=== PATIENT | female | born 1960 | race Caucasian/White ===

== ENCOUNTER 2022-10-22 14:21 | Emergency (ER) | payer OTHER, SELFPAY ==
[2022-10-22 15:02] VITALS: BP 159/74; PULSE 63; RESP 22; TEMP 36.4; O2SAT 97; BMI 37.2
--- NOTE | 2022-10-22 15:47 | ED_ITS ---
HPI - General Adult General Time Seen by Provider: 15:47 Date Seen: 10/22/22 Chief complaint: Cough Stated complaint: Pnuemonia Time Seen by Provider: 10/22/22 15:28 Source: patient Mode of arrival: ambulatory Limitations: no limitations History of Present Illness HPI narrative: Patient is 62-year-old female has history of asthma, she has been treated with Augmentin and then subsequent currently is on doxycycline and steroids. She sees an appraiser irrigation tax takes a couple of types of inhalers. Sees a local doctor. She actually reports she is feeling little bit better, little bit more energy, little less congestion but has a lot of mucus. She just started the steroids yesterday. No leg swelling edema, no chest pain. Related Data Home Medications Medication Instructions Recorded Confirmed buspirone 5 mg tablet 5 mg PO TID 10/22/22 10/22/22 doxycycline hyclate 100 mg tablet 100 mg PO BID 10/22/22 10/22/22 estradiol 0.5 mg tablet (Estrace) 0.25 mg PO DAILY 10/22/22 10/22/22 hydrochlorothiazide 25 mg tablet 25 mg PO DAILY 10/22/22 10/22/22 levalbuterol tartrate 45 1 inh inhalation Q4-6H PRN 10/22/22 10/22/22 mcg/actuation aerosol inhaler losartan 50 mg tablet (Cozaar) 50 mg PO DAILY 10/22/22 10/22/22 medroxyprogesterone 2.5 mg tablet 2.5 mg PO DAILY 10/22/22 10/22/22 (Provera) metoprolol tartrate 25 mg tablet 50 mg PO BID 10/22/22 10/22/22 omega 4-xtx-aif-fish oil 1,000 mg 1 cap PO DAILY 10/22/22 10/22/22 (120 mg-180 mg) capsule (Fish Oil) prednisone 20 mg tablet 40 mg PO DAILY 10/22/22 10/22/22 zafirlukast 20 mg tablet 20 mg PO DAILY 10/22/22 10/22/22 Allergies Allergy/AdvReac Type Severity Reaction Status Date / Time Sulfa (Sulfonamide Allergy Verified 10/22/22 15:10 Antibiotics) Review of Systems Status of ROS: Reports: 6 or more systems reviewed and unremarkable except as noted in History and below PFSH PFSH Social History Smoking Status: Never smoker Do you use any of these nicotine containing products: None Second hand tobacco smoke exposure: No How often do you have a drink containing alcohol: monthly or less AUDIT-C Alcohol total score: 1 Non-prescribed substance use: denies use Exam Narrative: Exam Narrative: Objective: Vital signs unremarkable O2 sat is 97% on room air HEENT is unremarkable neck is supple Chest is clear no rales or wheezing Heart rhythm regular without murmur Extremities are no edema Const: Vital Signs, click to edit/add: Vital Signs - 24 hr 10/22/22 15:02 Temperature 97.6 F Pulse Rate [Pulse Oximeter] 63 Respiratory Rate 22 Blood Pressure [Ri t Upper Arm] 159/74 H Pulse Oximetry 97 Oxygen Delivery Me thod Room Air Course Vital Signs Vital signs: Initial Vital Signs Temperature 97.6 F 10/22/22 15:02 Temperature Source Temporal Artery Scan 10/22/22 15:02 Pulse Rate 63 10/22/22 15:02 Pulse Rhythm 10/22/22 15:02 Respiratory Rate 22 10/22/22 15:02 Blood Pressure 159/74 H 10/22/22 15:02 Blood Pressure Mean 102 10/22/22 15:02 Blood Pressure Position Sitting 10/22/22 15:02 Pulse Oximetry 97 10/22/22 15:02 Oxygen Delivery Method 10/22/22 15:02 Vital Signs Temperature 97.6 F 10/22/22 15:02 Pulse Rate 63 10/22/22 15:02 Respiratory Rate 22 10/22/22 15:02 Blood Pressure 159/74 H 10/22/22 15:02 Pulse Oximetry 97 10/22/22 15:02 Oxygen Delivery Method 10/22/22 15:02 Temperature 97.6 F 10/22/22 15:02 Pulse Rate 63 10/22/22 15:02 Respiratory Rate 22 10/22/22 15:02 Blood Pressure 159/74 H 10/22/22 15:02 Pulse Oximetry 97 10/22/22 15:02 Oxygen Delivery Method 10/22/22 15:02 Medical Decision Making MDM Narrative Medical decision making narrative: Patient is a 62 year white female with history of asthma, she started on steroids and doxycycline. She is feeling actually little bit better. I think it be reasonable to check an RSV/COVID/influenza test. She has taken COVID tests are negative at home. She does not smoke. She will follow up with regular doctor next few days as needed. Otherwise I return to ED if she worsens. And this is viral induced asthma exacerbation. Lab Data Labs: Lab Results 10/22/22 Range/Units 15:44 SARS-CoV-2 (PCR) Negative SARS-CoV-2 (Negative) Influenza Type A (PCR) Negative PCR FLU A (Negative) Influenza Type B (PCR) Negative PCR FLU B (Negative) RSV (PCR) POSITIVE PCR RSV A (Negative) Discharge Plan Discharge Clinical Impression: Acute upper respiratory infection, Asthma Patient Disposition: Home w/ Parent or Adult Condition: Stable Additional Instructions: Continue antibiotic doxycycline and steroids, continue inhalers. Follow up with regular doctor next couple of days, return here sooner problems or concerns Activity Level: Light activity Discharge Diet: Regular Prescriptions: No Action doxycycline hyclate 100 mg tablet 100 mg PO BID Label Comments: TAKE ONE TABLET BY MOUTH TWICE A DAY FOR 5 DAYS estradiol [Estrace] 0.5 mg tablet 0.25 mg PO DAILY buspirone 5 mg tablet 5 mg PO TID omega 6-xcy-zba-fish oil [Fish Oil] 1,000 mg (120 mg-180 mg) capsule 1 cap PO DAILY hydrochlorothiazide 25 mg tablet 25 mg PO DAILY levalbuterol tartrate 45 mcg/actuation HFA aerosol inhaler 1 inh inhalation Q4-6H PRN medroxyprogesterone [Provera] 2.5 mg tablet 2.5 mg PO DAILY metoprolol tartrate 25 mg tablet 50 mg PO BID losartan [Cozaar] 50 mg tablet 50 mg PO DAILY prednisone 20 mg tablet 40 mg PO DAILY Rx Instructions: daily for 5 days zafirlukast 20 mg tablet 20 mg PO DAILY Rx Instructions: must be taken on empty stomach, at least 1 hr before or 2 hrs after a meal/food Follow Up/Referrals: Jessenia Horvath MD [Primary Care Provider] - Stand Alone Forms: [employer] Info Instructions
[2022-10-22 16:39] LABS: PCR FLU A Negative PCR FLU A (Negative); PCR FLU B Negative PCR FLU B (Negative); PCR RSV POSITIVE PCR RSV (Negative); SARS PCR* Negative SARS-CoV-2 (Negative)
== END 2022-10-22 16:04 | disposition home or self-care (01) ==
LOC: ED 15:51
PROVIDERS: Emergency Provider Family Medicine; PCP Family Medicine
DX: J06.9 Acute upper respiratory infection, unspecified (principal); J45.909 Unspecified asthma, uncomplicated
CPT/HCPCS: 87502; 87634; 87635; 99283

== ENCOUNTER 2023-04-14 13:28 | Emergency (ER) | payer OTHER, SELFPAY ==
[2023-04-14 13:36] VITALS: BP 148/85; PULSE 52; RESP 16; TEMP 36.4; O2SAT 97; BMI 39.0
--- NOTE | 2023-04-14 13:51 | ED.ARRPALP ---
HPI - Arrhythmia/Palpitations General Time Seen by Provider: 13:52 Date Seen: 04/14/23 Chief Complaint: Arrhythmia/Palpitations Stated Complaint: Bradycardia Time Seen by Provider: 04/14/23 13:29 Source: patient, RN notes reviewed and old records reviewed Mode of arrival: ambulatory Limitations: no limitations History of Present Illness HPI narrative: Patient is a 63-year-old female coming in with complaint of low heart rate. She has been feeling a little lightheaded/dizzy, short of breath at times. She noted on her watch today that her heart rate was in the 40s to 60s. Sometimes when she sleeps she knows it will go down but it is usually up during the day. She was in meetings yesterday just was not feeling quite right in her heart rate was even low during the meetings. She occasionally will feel just a little chest pressure like somebody is pressing on her chest. She is on metoprolol, does not know the dose but no she takes it twice a day. We have listed in the records from October that it was 50 mg of metoprolol twice a day. We are going to have nursing staff see if they can attempt to contact her pharmacy to make sure we know what dose she is on. She is on no other antiarrhythmics. She takes hydrochlorothiazide and losartan for her blood pressure. She states she is on metoprolol for a fast heart rate, this is help suppress it. Prior records stated SVT but unclear exactly what her underlying rhythm is at this point. No syncope. Has not been sick otherwise, no concomitant illness. Arrhythmia history: SVT (Possible underlying history of this) Related Data Home Medications Medication Instructions Recorded Confirmed buspirone 5 mg tablet 5 mg PO TID 10/22/22 10/22/22 estradiol 0.5 mg tablet (Estrace) 0.25 mg PO DAILY 10/22/22 10/22/22 hydrochlorothiazide 25 mg tablet 25 mg PO DAILY 10/22/22 10/22/22 levalbuterol tartrate 45 1 inh inhalation Q4-6H PRN 10/22/22 10/22/22 mcg/actuation aerosol inhaler losartan 50 mg tablet (Cozaar) 50 mg PO DAILY 10/22/22 10/22/22 medroxyprogesterone 2.5 mg tablet 2.5 mg PO DAILY 10/22/22 10/22/22 (Provera) omega 1-isi-rxw-fish oil 1,000 mg 1 cap PO DAILY 10/22/22 10/22/22 (120 mg-180 mg) capsule (Fish Oil) prednisone 20 mg tablet 40 mg PO DAILY 10/22/22 10/22/22 zafirlukast 20 mg tablet 20 mg PO DAILY 10/22/22 10/22/22 metoprolol tartrate 50 mg tablet 50 mg PO BID 04/14/23 04/14/23 Allergies Allergy/AdvReac Type Severity Reaction Status Date / Time Sulfa (Sulfonamide Allergy Verified 10/22/22 15:10 Antibiotics) Review of Systems Status of ROS: Reports: 6 or more systems reviewed and unremarkable except as noted in History and below PFSH PFS Social History Smoking Status: Never smoker Do you use any of these nicotine containing products: None Second hand tobacco smoke exposure: No How often do you have a drink containing alcohol: monthly or less AUDIT-C Alcohol total score: 1 Non-prescribed substance use: denies use Exam Const: Vital Signs, click to edit/add: Vital Signs - 24 hr 04/14/23 13:36 04/14/23 13:55 04/14/23 14:00 Temperature 97.6 F Pulse Rate 54 L 53 L Pulse Rate [Right Pulse Oximeter] 52 L Respiratory Rate 16 Blood Pressure [Ri ght Upper Arm] 148/85 H Pulse Oximetry 97 97 96 Oxygen Delivery Me thod Room Air Documenting provider has reviewed patient's vital signs: yes Common normals: no apparent distress, average body habitus, oriented x3, no limitations, healthy appearing, alert and well nourished General appearance: cooperative, comfortable, well kempt and well developed HENMT: Common normals: normocephalic, head/scalp atraumatic and hearing grossly normal bilaterally Head and scalp: normocephalic and atraumatic Face and sinus: normal facial exam Eye: Common normals: PERRL, EOMs intact bilaterally, conjunctivae normal and no scleral icterus Conjunctiva: conjunctiva(e) normal Pupil: PERRL Neck & C-Spine: Common normals: no JVD Resp: Common normals: normal respiratory effort, no retractions, no use of accessory muscles and clear to auscultation bilaterally Effort & inspection: able to speak in complete sentences Auscultation: clear to auscultation bilaterally Cardio: Common normals: no JVD, regular rate, regular rhythm, S1 normal heart sound, S2 normal heart sound, no gallops and no clicks Rate: regular rate Rhythm: regular rhythm Heart sounds: S1 normal and S2 normal GI: Common normals: Normal to inspection, nondistended, normoactive bowel sounds present, soft to palpation, non-tender and no hepatosplenomegaly Palpation: soft and no hepatosplenomegaly Extremity: Common normals: no pedal edema Neuro: Common normals: oriented x3 Sensorium/orientation: alert Psych: Appearance: well kempt Course Course Hospital Course: Patient will be monitored on pulse oximetry and cardiac monitoring. She is bradycardic in the 50s at rest, not hypotensive. Will get portable chest x-ray and baseline labs. We will watch her here to make sure that she is not becoming too low. She is most definitely going to need an adjustment in her metoprolol. Will have nursing staff confirm her dose so that we can make appropriate adjustments. Reevaluation(s) Time of Reevaluation #1: 15:12 Reevaluation #1: Patient has not had any significant bradycardia while here. Currently is just below 60s in the upper 50s [place] talking to her. Reviewed her potassium is mildly low at 3.3. She states it frequently is. Given she has got some bradycardia, did recommend that we have her take some oral effervescent potassium, have ordered 25 mEq. She agrees to do so. She states that she believes she had SVT and maybe some minor ventricular tachycardia on her last ZIO patch. She understands that she may need to follow up with Cardiology. Hopefully with decreasing her metoprolol she will not have increased tachyarrhythmias but she does understand if these are sustained or significantly symptomatic that she will need to return. Vital Signs Vital signs: Initial Vital Signs Temperature 97.6 F 04/14/23 13:36 Temperature Source Temporal Artery Scan 04/14/23 13:36 Pulse Rate 52 L 04/14/23 13:36 Pulse Rhythm Regular 04/14/23 13:36 Respiratory Rate 16 04/14/23 13:36 Blood Pressure 148/85 H 04/14/23 13:36 Blood Pressure Mean 106 H 04/14/23 13:36 Blood Pressure Position Sitting 04/14/23 13:36 Pulse Oximetry 97 04/14/23 13:36 Oxygen Delivery Method Room Air 04/14/23 13:36 Vital Signs Temperature 97.6 F 04/14/23 13:36 Pulse Rate 52 L 04/14/23 13:36 Respiratory Rate 16 04/14/23 13:36 Blood Pressure 148/85 H 04/14/23 13:36 Pulse Oximetry 97 04/14/23 13:36 Oxygen Delivery Method Room Air 04/14/23 13:36 Temperature 97.6 F 04/14/23 13:36 Pulse Rate 53 L 04/14/23 14:00 Respiratory Rate 16 04/14/23 13:36 Blood Pressure 148/85 H 04/14/23 13:36 Pulse Oximetry 96 04/14/23 14:00 Oxygen Delivery Method Room Air 04/14/23 13:36 MDM - Arrhythmia/Palpitations Lab Data Attestation: I reviewed the patient's lab results. Labs: Lab Results 04/14/23 04/14/23 Range/Units 14:00 14:10 WBC 11.21 H (4.50-11.00) K/uL RBC 5.16 (4.00-5.20) m/uL Hgb 15.8 (12.0-16.0) gm/dL Hct 46.4 (33.0-51.0) % MCV 90 (80-100) fL MCH 31 (26-34) pg MCHC 34 (32-36) gm/dL RDW Coeff of Oni 13.0 (11.5-15.5) % Plt Count 381 (140-440) K/uL Neut % (Auto) 55.9 (42.0-72.0) % Lymph % (Auto) 33.9 (20-44) % [place] % (Auto) 9.4 (0.0-11.0) % Eos % (Auto) 0.0 (0.0-7.0) % Baso % (Auto) 0.3 (0.0-3.0) % Neut # (Auto) 6.30 (1.7-7.0) K/uL Lymph # (Auto) 3.80 H (0.90-2.90) K/uL [place] # (Auto) 1.10 H (0.00-0.90) K/UL Eos # (Auto) 0.00 (0.00-0.50) K/uL Baso # (Auto) 0.00 (0.00-0.30) K/uL Sodium 139 (135-149) mmol/L Potassium 3.3 L (3.6-5.1) mmol/L Chloride 101 (96-114) mmol/L Carbon Dioxide 28 (20-32) mmol/L BUN 15 (7-30) mg/dL Creatinine 0.9 (0.5-1.5) mg/dL Estimated Creat Clear 48.87 Estimated GFR 73 ml/min Glucose 96 (60-115) mg/dL Calcium 9.5 (8.4-10.6) mg/dL Magnesium 2.2 (1.5-2.6) mg/dL Total Bilirubin 1.1 (0.1-1.5) mg/dL AST 29 (12-35) U/L ALT 40 H (4-35) U/L Alkaline Phosphatase 54 (40-150) U/L NT-Pro-B Natriuret Pep 197 pg/mL Total Protein 7.6 (6.0-8.3) g/dL Albumin 4.4 (3.3-5.0) g/dL POC Troponin I 0.00 L (0.01-0.04) ng/ml Imaging Data Chest x-ray: Attestation: I have reviewed the pertinent imaging results. Radiologist's impression: Patient: BELÉN QUEVEDO Facility:?[facility] Patient ID:?[id number] Site Patient ID:?[id number]. Site :?[id number] Study:?XRay Chest pcxr-04/14/2023 2:41:09 PM Ordering Physician:?Juan Luu Final Report: INDICATION: Shortness of breath TECHNIQUE: Single view chest. FINDINGS: Low lung volumes. Mildly enlarged cardiac silhouette. Prominence interstitial markings could be related to mild pulmonary edema. No effusion or pneumothorax. Dictated by Sania Mccray MD @ 04/14/2023 3:19:07 PM (Electronic Signature) ECG Data Attestation: I personally reviewed and interpreted this ECG as follows: (Sinus bradycardia, 54 beats per minute. Possible voltage criteria for LVH. No acute ischemic change. QT corrected 385 milliseconds.) ECG interpretation date: 04/14/23 ECG interpretation time: 14:01 Prior ECG tracings: not available for review Core Measures AMI core measures followed: No Critical Care Time Critical Care Time Critical Care Time: No Discharge Plan Discharge Clinical Impression: Bradycardia, drug induced, Hypokalemia Patient Disposition: Home, Self-Care Condition: Stable Instructions: Potassium Content of Foods List (ED), Bradycardia (ED) Additional Instructions: Need to decrease your dosage to 25 mg twice a day of metoprolol. Follow-up with primary care provider within the next 1-2 weeks for recheck, sooner if problems or concerns. If you note continuing ongoing low heart rates that are worsening, consistently dropping into the 30s or 40s, do recommend re-evaluation in the ER. If with the decreased metoprolol, you are noticing increasing arrhythmias with your higher heart rates, please contact your steel barrel reamer. If you have any sustained elevated high heart rates, have any chest pain or shortness of breath with high heart rate, do recommend re-evaluation in the ER as well. Have your primary care provider recheck your potassium when you are in. You may need to go back to your steel barrel reamer, discuss this with her primary care provider. Try to increase dietary potassium through foods, handout on potassium content of foods provided. You will be contacted if there is any concern with the thyroid blood test; otherwise, assume that it is normal if you do not hear from us. Activity Level: Activity as Tolerated Discharge Diet: Heart Healthy (2 gm sodium, low fat) Prescriptions: No Action metoprolol tartrate 50 mg tablet 50 mg PO BID estradiol [Estrace] 0.5 mg tablet 0.25 mg PO DAILY buspirone 5 mg tablet 5 mg PO TID omega 0-wyr-zzs-fish oil [Fish Oil] 1,000 mg (120 mg-180 mg) capsule 1 cap PO DAILY hydrochlorothiazide 25 mg tablet 25 mg PO DAILY levalbuterol tartrate 45 mcg/actuation HFA aerosol inhaler 1 inh inhalation Q4-6H PRN medroxyprogesterone [Provera] 2.5 mg tablet 2.5 mg PO DAILY losartan [Cozaar] 50 mg tablet 50 mg PO DAILY prednisone 20 mg tablet 40 mg PO DAILY Rx Instructions: daily for 5 days zafirlukast 20 mg tablet 20 mg PO DAILY Rx Instructions: must be taken on empty stomach, at least 1 hr before or 2 hrs after a meal/food Follow Up/Referrals: Jessenia Horvath MD [Primary Care Provider] - Stand Alone Forms: [employer] Info Instructions
[2023-04-14 13:55] VITALS: PULSE 54; O2SAT 97
[2023-04-14 14:00] VITALS: PULSE 53; O2SAT 96
--- NOTE | 2023-04-14 14:00 | CRLHL7_ITS ---
For Patients: As a result of the Century Cures Act, medical imaging exams and procedure reports are released immediately into your electronic medical record. You may view this report before your referring provider. If you have questions, please contact your health care provider. INDICATION: Shortness of breath TECHNIQUE: Single view chest. FINDINGS: Low lung volumes. Mildly enlarged cardiac silhouette. Prominence interstitial markings could be related to mild pulmonary edema. No effusion or pneumothorax. Dictated by Sania Mccray MD @ 04/14/2023 3:19:07 PM (Electronically Signed)
[2023-04-14 14:41] LABS: Albumin* 4.4 g/dL (3.3-5.0); Chloride* 101 mmol/L (96-114); Potassium* 3.3 mmol/L (3.6-5.1); Sodium* 139 mmol/L (135-149)
[2023-04-14 14:43] LABS: Creatinine* 0.9 mg/dL (0.5-1.5); Est. Creatinine Clearance* 48.87; Estimated Glomerular Filt Rate 73 ml/min
[2023-04-14 14:44] LABS: Alanine Aminotransferase* 40 U/L (4-35); Alkaline Phosphatase* 54 U/L (40-150); Aspartate Amino Transferase* 29 U/L (12-35); Bilirubin Total* 1.1 mg/dL (0.1-1.5); Blood Urea Nitrogen* 15 mg/dL (7-30); Calcium* 9.5 mg/dL (8.4-10.6); Carbon Dioxide* 28 mmol/L (20-32); Glucose* 96 mg/dL (60-115); Total Protein* 7.6 g/dL (6.0-8.3)
[2023-04-14 14:45] LABS: Magnesium* 2.2 mg/dL (1.5-2.6)
[2023-04-14 14:48] LABS: Basophils Percent Auto 0.3 % (0.0-3.0); Hematocrit 46.4 % (33.0-51.0); Hemoglobin* 15.8 gm/dL (12.0-16.0); Immature Granulocytes Pct Auto 0.5 %; Lymphocytes Percent Auto 33.9 % (20-44); Mean Corpuscular HGB Conc 34 gm/dL (32-36); Mean Corpuscular Hemoglobin 31 pg (26-34); Mean Corpuscular Volume 90 fL (80-100); Monocytes Percent Auto 9.4 % (0.0-11.0); Neutrophils Percent Auto 55.9 % (42.0-72.0); Platelet Count* 381 K/uL (140-440); Red Blood Count 5.16 m/uL (4.00-5.20); White Blood Count* 11.21 K/uL (4.50-11.00)
[2023-04-14 14:49] LABS: Slide Review Reflex No
[2023-04-14 14:53] LABS: NT Pro B Type NatriureticPept* 197 pg/mL
[2023-04-14] MEDS: POTASSIUM BICARB 25 MEQ EFFERVESCENT TAB PO (15:11)
== END 2023-04-14 15:35 | disposition home or self-care (01) ==
PROVIDERS: Emergency Provider Family Medicine; PCP Family Medicine
DX: R00.1 Bradycardia, unspecified (principal); E87.6 Hypokalemia
CPT/HCPCS: 36415; 71045; 80053; 83735; 83880; 84443; 84484; 85025; 93005; 94761; 99284; 99285; A9270

== ENCOUNTER 2025-01-27 14:17 | Emergency (ER) | payer OTHER, SELFPAY ==
[2025-01-27 14:55] VITALS: BP 133/79; PULSE 99; RESP 18; TEMP 37.3; O2SAT 94; BMI 39.0
--- NOTE | 2025-01-27 15:52 | ED.NAVMDI ---
HPI - Nausea/Vomiting/Diarrhea General Chief complaint: Nausea/Vomiting Stated complaint: dehydration Time Seen by Provider: 01/27/25 15:43 History of Present Illness HPI Narrative: This 65-year-old female comes in reporting persistent vomiting with some diarrhea that began last evening after taking her evening meal. She does not report any fevers or blood in the toilet. She called in to clinic and was advised to come here for fluids. She arrives here with normal vital signs. Related Data Home Medications ?Medication ?Instructions ?Recorded ?Confirmed buspirone 5 mg tablet 5 mg PO TID 10/22/22 10/22/22 hydrochlorothiazide 25 mg tablet 25 mg PO DAILY 10/22/22 10/22/22 levalbuterol tartrate 45 1 inh inhalation Q4-6H PRN 10/22/22 10/22/22 mcg/actuation aerosol inhaler losartan 50 mg tablet (Cozaar) 50 mg PO DAILY 10/22/22 10/22/22 omega 6-jim-voh-fish oil 1,000 mg 1 cap PO DAILY 10/22/22 10/22/22 (120 mg-180 mg) capsule (Fish Oil) prednisone 20 mg tablet 40 mg PO DAILY 10/22/22 10/22/22 zafirlukast 20 mg tablet 20 mg PO DAILY 10/22/22 10/22/22 metoprolol tartrate 50 mg tablet 50 mg PO BID 04/14/23 04/14/23 colestipol 1 gram tablet 1 g PO BID 01/27/25 01/27/25 gabapentin 100 mg capsule 100 mg PO DAILY 01/27/25 01/27/25 Previous Rx's ?Medication ?Instructions ?Recorded ondansetron HCl 4 mg tablet 4 mg PO Q6H #10 tabs 01/27/25 Allergies Allergy/AdvReac Type Severity Reaction Status Date / Time Sulfa (Sulfonamide Allergy Verified 10/22/22 15:10 Antibiotics) Review of Systems Status of ROS: Reports: 10 or more systems reviewed and unremarkable except as noted in History and below Narrative: Constitutional: No fevers, no weight gain or loss. Eyes: No discharge. No vision changes. HENT: No congestion, no sore throat, no ear pain. Cardiovascular: No chest pain, no palpitations. Respiratory: No shortness of breath, no wheezes, no cough. Gastrointestinal: Abdominal pain related to vomiting. Persistent nausea and vomiting with some diarrhea. Genitourinary: No dysuria, no hematuria. Musculoskeletal: Normal range of motion. Skin: No rashes, no pruritis. Neurological: No dizziness, weakness, sensory change, speech change. Endo/Heme/Allergies: No bruising or bleeding. No polydipsia. Pysch: no suicidality, no anxiety, no insomnia. All other systems reviewed and are negative. [facility] Social History Smoking Status: Never smoker Do you use any of these nicotine containing products: None Second hand tobacco smoke exposure: No How often do you have a drink containing alcohol: monthly or less AUDIT-C Alcohol total score: 1 Non-prescribed substance use: denies use Exam Narrative: Exam Narrative: Constitutional: Well-developed, well-nourished, no acute distress. HEENT: Normocephalic, atraumatic. Neck: Normal range of motion. Nontender. Supple. Heart: Regular. No murmurs. Normal rate. Intact distal pulses. Lungs: Clear to auscultation. No chest discomfort. No wheezes, rhonchi, or rales. Abdomen: Normal bowel sounds. Mild tenderness in the upper epigastric region. No rebound tenderness. Genitalia: Deferred. Back: No midline tenderness. Normal range of motion. Extremities: Normal range of motion. No injury. Skin: Intact. No rash. Warm. No erythema or pallor. Neurologic: No altered sensation. No weakness. Alert and oriented. Psychiatric: No suicidality. No anxiety or depression. No insomnia. Nursing notes and vitals signs are reviewed. Const: Vital Signs, click to edit/add: Vital Signs - 24 hr 01/27/25 14:55 Temperature 99.2 F Pulse Rate [Pulse Oximeter] 99 Respiratory Rate 18 Blood Pressure [Ri ght Upper Arm] 133/79 Pulse Oximetry 94 Oxygen Delivery Me thod Room Air Course Vital Signs Vital signs: Initial Vital Signs Temperature 99.2 F 01/27/25 14:55 Temperature Source Temporal Artery Scan 01/27/25 14:55 Pulse Rate 99 01/27/25 14:55 Respiratory Rate 18 01/27/25 14:55 Blood Pressure 133/79 01/27/25 14:55 Blood Pressure Mean 97 01/27/25 14:55 Blood Pressure Position Sitting 01/27/25 14:55 Pulse Oximetry 94 01/27/25 14:55 Oxygen Delivery Method Room Air 01/27/25 14:55 Vital Signs Temperature 99.2 F 01/27/25 14:55 Pulse Rate 99 01/27/25 14:55 Respiratory Rate 18 01/27/25 14:55 Blood Pressure 133/79 01/27/25 14:55 Pulse Oximetry 94 01/27/25 14:55 Oxygen Delivery Method Room Air 01/27/25 14:55 Temperature 99.2 F 01/27/25 14:55 Pulse Rate 99 01/27/25 14:55 Respiratory Rate 18 01/27/25 14:55 Blood Pressure 133/79 01/27/25 14:55 Pulse Oximetry 94 01/27/25 14:55 Oxygen Delivery Method Room Air 01/27/25 14:55 MDM - Nausea/Vomiting/Diarrhea MDM Narrative Medical decision making narrative: This patient comes in with nausea and vomiting symptoms as described above. An IV was established where she received a L of normal saline along with 4 mg of Zofran. She also received 4 mg of loperamide orally. Labs are acquired and the oncoming ER doc will look after results. The patient should be okay to return home and I did provide a prescription for Zofran. Discharge Plan Discharge Clinical Impression: Gastroenteritis Patient Disposition: Home, Self-Care Condition: Stable Additional Instructions: Take medication as prescribed and needed. Take frequent sips of fluids and increase diet as tolerated. Follow up with MD return if worsening. Prescriptions: New ondansetron HCl 4 mg tablet 4 mg PO Q6H Qty: 10 0RF No Action metoprolol tartrate 50 mg tablet 50 mg PO BID gabapentin 100 mg capsule 100 mg PO DAILY colestipol 1 gram tablet 1 g PO BID buspirone 5 mg tablet 5 mg PO TID omega 3-ydj-hri-fish oil [Fish Oil] 1,000 mg (120 mg-180 mg) capsule 1 cap PO DAILY hydrochlorothiazide 25 mg tablet 25 mg PO DAILY levalbuterol tartrate 45 mcg/actuation HFA aerosol inhaler 1 inh inhalation Q4-6H PRN losartan [Cozaar] 50 mg tablet 50 mg PO DAILY prednisone 20 mg tablet 40 mg PO DAILY Rx Instructions: daily for 5 days zafirlukast 20 mg tablet 20 mg PO DAILY Rx Instructions: must be taken on empty stomach, at least 1 hr before or 2 hrs after a meal/food Follow Up/Referrals: Jessenia Horvath MD [Primary Care Provider] - Stand Alone Forms: [employer] Info Instructions
[2025-01-27] MEDS: LOPERAMIDE HCL 2 MG CAPSULE 4 MG PO (16:00)
[2025-01-27] MEDS: 0.9 % SODIUM CHLORIDE 1000 ml 1,000 ML IV (16:00)
[2025-01-27] MEDS: ONDANSETRON 2 MG/ML inj 4 MG IVP (16:00)
[2025-01-27 16:06] LABS: Basophils Absolute Auto 0.02 K/uL (0.00-0.30); Basophils Percent Auto 0.2 % (0.0-3.0); Hematocrit 45.1 % (33.0-51.0); Hemoglobin* 15.2 gm/dL (12.0-16.0); Immature Granulocytes Abs Auto 0.01 K/uL (0.00-0.30); Immature Granulocytes Pct Auto 0.1 %; Mean Corpuscular HGB Conc 34 gm/dL (32-36); Mean Corpuscular Hemoglobin 30 pg (26-34); Mean Corpuscular Volume 90 fL (80-100); Monocytes Percent Auto 11.7 % (0.0-11.0); Platelet Count* 306 K/uL (140-440); RDW Coefficient of Variation % 12.9 % (11.5-15.5); Red Blood Count 5.02 m/uL (4.00-5.20); White Blood Count* 8.74 K/uL (4.50-11.00)
[2025-01-27 16:21] LABS: Slide Review Reflex No
[2025-01-27 16:56] LABS: Chloride* 98 mmol/L (96-114); Potassium* 3.4 mmol/L (3.6-5.1); Sodium* 137 mmol/L (135-149)
[2025-01-27 16:59] LABS: Anion Gap 10 mEq/L (7-15); Blood Urea Nitrogen* 19 mg/dL (7-30); Calcium* 9.3 mg/dL (8.4-10.6); Carbon Dioxide* 29 mmol/L (20-32); Creatinine* 0.8 mg/dL (0.5-1.5); Est. Creatinine Clearance* 47.63; Estimated Glomerular Filt Rate 83 ml/min; Glucose* 106 mg/dL (60-115)
== END 2025-01-27 17:26 | disposition home or self-care (01) ==
PROVIDERS: Emergency Provider Emergency Medicine Emergency Medical Services; PCP Family Medicine
DX: K52.9 Noninfective gastroenteritis and colitis, unspecified (principal)
CPT/HCPCS: 36415; 80048; 85025; 96361; 96374; 99284; A9270; J2405; J7030